=== PATIENT | male | born 1955 | race Caucasian/White ===

== ENCOUNTER 2021-12-10 07:02 | Day surgery (SDC) | payer OTHER ==
[2021-12-10] VITALS (8 sets, daily range): BP systolic 111–144; BP diastolic 66–90
[~2021-12-10] VITALS: Ht 170.2 cm; Wt 70.2 kg
[~2021-12-10 07:02] MED LIST: ASPI-543 PO; ATOR20TA50 PO; CARV12.544 PO; CILO100T PO; HYDR25TA87 PO; LOSA25TA38 PO
[2021-12-10] MEDS ORDERED: IOHEXOL 350 MG/ML 100ML IJ ONE (08:51)
[2021-12-10] MEDS ORDERED: LIDOCAINE 2%HCL (LOCAL ANESTH.) INJ 20ML MDV ONE (08:52)
[2021-12-10] MEDS ORDERED: MIDAZOLAM HCL 2MG/2ML 2ml VIAL (1mg/ml) ONE (08:55)
[2021-12-10] MEDS ORDERED: fentaNYL CITRATE 100 MCG/2 ML VL ONE (08:55)
[2021-12-10] MEDS ORDERED: ANGIOMAX 250 MG VIAL IV ONE (08:55)
[2021-12-10] MEDS ORDERED: SODIUM CHL 0.9% 0 ML ONE (08:55)
[2021-12-10] MEDS ORDERED: IODIXANOL 320MG/ML 100ML BTL IV ONE (08:58)
[2021-12-10] MEDS ORDERED: HEPARIN SODIUM (PORCINE) 5000 UNITS/ML 1ML VIAL ONE (09:26)
[2021-12-10] MEDS ORDERED: PROTAMINE SULFATE 10 MG/ML 5ML VIAL IV ONE (09:54)
[2021-12-10] MEDS ORDERED: SODIUM CHLOR 0.9% PF (SALINE LOCK) 10ML VIAL/SYR IV SCH (14:00)
== END 2021-12-10 16:08 | disposition home or self-care (01) ==
LOC: CATH 07:02
PROVIDERS: ATTEND Internal Medicine
DX: I73.9 Peripheral vascular disease, unspecified (principal); F17.200 Nicotine dependence, unspecified, uncomplicated; Z20.822 Contact with and (suspected) exposure to COVID-19
CPT/HCPCS: C1761; C1769; C1887; C1894; C9764; J1644; J2250; J3010; J7040; Q9967; U0003; 99152; 99153

== ENCOUNTER 2022-01-21 07:06 | Day surgery (SDC) | payer OTHER ==
[~2022-01-21] VITALS: Ht 170.2 cm; Wt 70.3 kg
[2022-01-21] MEDS ORDERED: IODIXANOL 320MG/ML 100ML BTL IV ONE ×2 (07:40→08:30)
[2022-01-21] MEDS ORDERED: IOHEXOL 350 MG/ML 100ML IJ ONE (07:40)
[2022-01-21] MEDS ORDERED: LIDOCAINE 2%HCL (LOCAL ANESTH.) INJ 20ML MDV ONE (07:41)
[2022-01-21] MEDS ORDERED: ANGIOMAX 250 MG VIAL IV ONE (08:13)
[2022-01-21] MEDS ORDERED: fentaNYL CITRATE 100 MCG/2 ML VL ONE (08:14)
[2022-01-21] MEDS ORDERED: MIDAZOLAM HCL 2MG/2ML 2ml VIAL (1mg/ml) ONE (08:14)
[2022-01-21] MEDS ORDERED: SODIUM CHL 0.9% 50 ML ONE (08:14)
[2022-01-21] MEDS ORDERED: VERAPAMIL 2.5MG/ML INJ 2ML VIAL IV ONE (08:53)
[2022-01-21 09:35] VITALS: BP 130/81
[2022-01-21 09:50] VITALS: BP 122/79
[2022-01-21 10:05] VITALS: BP 120/69
[2022-01-21 10:20] VITALS: BP 121/81
[2022-01-21 10:35] VITALS: BP 114/74
== END 2022-01-21 11:21 | disposition home or self-care (01) ==
LOC: CATH 07:06
PROVIDERS: ATTEND Internal Medicine
DX: I73.9 Peripheral vascular disease, unspecified (principal); F17.200 Nicotine dependence, unspecified, uncomplicated; Z20.822 Contact with and (suspected) exposure to COVID-19
CPT/HCPCS: 37224; 76942; 99152; 99153; J2250; Q9967